=== PATIENT | female | born 1995 | race Caucasian/White ===

== ENCOUNTER 2017-02-02 21:19 | Emergency (ER) | payer OTHER | END 2017-02-02 23:27 | disposition left against medical advice (07) | LOC: ER1 21:19 | DX: Z53.21 Procedure and treatment not carried out due to patient leaving prior to being seen by health care provider (principal) | CPT/HCPCS: 81001; 84703 ==

== ENCOUNTER 2017-02-03 17:47 | Emergency (ER) | payer OTHER | END 2017-02-03 23:30 | disposition home or self-care (01) | LOC: ER1 17:47 | DX: N93.9 Abnormal uterine and vaginal bleeding, unspecified (principal); F17.200 Nicotine dependence, unspecified, uncomplicated | CPT/HCPCS: 84703; 99284 ==

== ENCOUNTER → 2017-04-10 | Outpatient (CLI) | payer OTHER | LOC: HEART 5 07:30 | DX: R00.0 Tachycardia, unspecified (principal); R00.2 Palpitations; R55 Syncope and collapse ==

== ENCOUNTER → 2020-10-23 | Outpatient (CLI) | payer OTHER ==
[~2020-10-23] MED LIST: ACYCLOVIR400 MG PO; COLACE100 MG PO; IBUPROFEN400 MG PO; NAPROXEN500 MG PO; ROXICODONE5 MG PO
[2020-10-23 10:03] LABS: HEMOGLOBIN 13.9 gm/dl (12.3-15.3); RED BLOOD COUNT 4.57 M/UL (4.00-5.10); WHITE BLOOD COUNT 5.1 K/UL (4.5-11.0)
== END ==
LOC: OPSV2 08:00
PROVIDERS: Obstetrics & Gynecology
DX: Z01.812 Encounter for preprocedural laboratory examination (principal); R10.2 Pelvic and perineal pain
CPT/HCPCS: 36415; 81001; 85025

== ENCOUNTER → 2020-10-30 | Day surgery (SDC) | payer OTHER | END | disposition home or self-care (01) | LOC: OR 06:20 | PROVIDERS: Obstetrics & Gynecology | PROC: 0U5B4ZZ Destruction of Endometrium, Percutaneous Endoscopic Approach (ICD-10-PCS; principal; 2020-10-30 08:00) | DX: N80.9 Endometriosis, unspecified (principal); K66.0 Peritoneal adhesions (postprocedural) (postinfection); N94.6 Dysmenorrhea, unspecified; N94.10 Unspecified dyspareunia; K21.9 Gastro-esophageal reflux disease without esophagitis; E05.90 Thyrotoxicosis, unspecified without thyrotoxic crisis or storm; Z87.891 Personal history of nicotine dependence; Z20.822 Contact with and (suspected) exposure to COVID-19 | CPT/HCPCS: 36415; 84703; J1100; J1885; J2001; J2250; J2405; J2704; J2710; J2795; J3010; J7120 ==

== ENCOUNTER 2021-08-19 12:50 | Inpatient (IN) | payer OTHER ==
[2021-08-21 07:17] LABS: HEMOGLOBIN 11.7 gm/dl (12.3-15.3); RED BLOOD COUNT 4.05 M/UL (4.00-5.10); WHITE BLOOD COUNT 11.2 K/UL (4.5-11.0)
[2021-08-21] MEDS ORDERED: COLACE100 MG PO (19:02)
[2021-08-21] MEDS ORDERED: IBUPROFEN800 MG PO (19:02)
[2021-08-21] MEDS ORDERED: HEMOCYTE324 MG PO (19:02)
[2021-08-21] MEDS ORDERED: PERCOCET 5/325 T1 EA PO (19:02)
[2021-08-22 04:41] LABS: HEMOGLOBIN 8.1 gm/dl (12.3-15.3)
== END 2021-08-23 13:35 | disposition home or self-care (01) | DRG 806 ==
LOC: LBRF 12:50 → OB 08-21 05:24
PROVIDERS: Obstetrics & Gynecology; ADMIT Obstetrics & Gynecology
PROC: 10H07YZ Insertion of Other Device into Products of Conception, Via Natural or Artificial Opening (ICD-10-PCS; principal; 2021-08-21)
PROC: 10E0XZZ Delivery of Products of Conception, External Approach (ICD-10-PCS; 2021-08-21)
PROC: 0KQM0ZZ Repair Perineum Muscle, Open Approach (ICD-10-PCS; 2021-08-21)
PROC: 4A1H8CZ Monitoring of Products of Conception, Cardiac Rate, Via Natural or Artificial Opening Endoscopic (ICD-10-PCS; 2021-08-21)
PROC: 10H073Z Insertion of Monitoring Electrode into Products of Conception, Via Natural or Artificial Opening (ICD-10-PCS; 2021-08-21)
PROC: 3E033VJ Introduction of Other Hormone into Peripheral Vein, Percutaneous Approach (ICD-10-PCS; 2021-08-21)
DX: O13.4 Gestational [pregnancy-induced] hypertension without significant proteinuria, complicating childbirth (principal); D62 Acute posthemorrhagic anemia; Z37.0 Single live birth; N80.9 Endometriosis, unspecified; Z20.822 Contact with and (suspected) exposure to COVID-19; O99.892 Other specified diseases and conditions complicating childbirth; M54.9 Dorsalgia, unspecified; O70.1 Second degree perineal laceration during delivery; O99.02 Anemia complicating childbirth; O99.344 Other mental disorders complicating childbirth; G47.00 Insomnia, unspecified; E28.2 Polycystic ovarian syndrome; E07.9 Disorder of thyroid, unspecified; O99.284 Endocrine, nutritional and metabolic diseases complicating childbirth; N94.6 Dysmenorrhea, unspecified; Z3A.38 38 weeks gestation of pregnancy
CPT/HCPCS: 36415; 51702; 81001; 85014; 85018; 85025; 85461; 86850; 86900; 86901; 90471; 90472; 90715; J0696; J2210; J2590; J7120; U0003

== ENCOUNTER 2022-04-25 12:13 | Emergency (ER) | payer OTHER ==
[~2022-04-25 12:13] MED LIST changes: +HEMOCYTE324 MG PO; +IBUPROFEN800 MG PO; +PERCOCET 5/325 T1 EA PO
[2022-04-25 14:00] LABS: RED BLOOD COUNT 4.57 M/UL (4.00-5.10); WHITE BLOOD COUNT 9.5 K/UL (4.5-11.0)
[2022-04-25 14:37] LABS: BUN/CREATININE RATIO 17 (0-10)
[2022-04-25] MEDS ORDERED: METOPROLOL SUCC25 MG PO (16:39)
[2022-04-25] MEDS ORDERED: MACROBID 100 M100 MG PO (16:39)
== END 2022-04-25 17:40 | disposition home or self-care (01) ==
LOC: ER1 12:13
PROVIDERS: Physician Assistant
DX: O99.282 Endocrine, nutritional and metabolic diseases complicating pregnancy, second trimester (principal); E03.9 Hypothyroidism, unspecified; O23.42 Unspecified infection of urinary tract in pregnancy, second trimester; N39.0 Urinary tract infection, site not specified; Z3A.21 21 weeks gestation of pregnancy
CPT/HCPCS: 80053; 81001; 82550; 82553; 84439; 84443; 84484; 85025; 87086; 93005; 99285